=== PATIENT | female | born 1990 | race Caucasian/White ===

== ENCOUNTER 2016-10-06 01:15 | Emergency (ER) | payer SELFPAY ==
[~2016-10-06] VITALS: Ht 170.2 cm; Wt 120.2 kg
[~2016-10-06 01:15] MED LIST: CIPR-260 PO
[2016-10-06 01:20] VITALS: BP 156/91; PULSE 83; RESP 22; TEMP 98.3; O2SAT 92
--- NOTE | 2016-10-06 01:30 | NUR ---
Placed in room 03 . Placed on secured entrance monitor, blood pressure machine and pulse oximeter. To gown for exam. Side rails up. Report given to NARINDER Jones.
--- NOTE | 2016-10-06 01:40 | NUR ---
ER MD Booker at bedside for evaluation
--- NOTE | 2016-10-06 01:41 | NUR ---
Patient to ER C/O SOB. States that she has been having cold like symptoms with cough. Denies fever. AAOx4, unlabored breathing, wheezes throughout, diminished lower lobes, no acute distress.
--- NOTE | 2016-10-06 01:42 | NUR ---
RT at bedside for breathing treatment. Patient identified
[2016-10-06] MEDS ORDERED: PREDNISONE 20 MG TABLET PO ONE (02:00)
[2016-10-06] MEDS ORDERED: LevALBUTEROL HCL 1.25 MG/0.5 ML *CONC.* VIAL.NEB (XOPENEX CONC.) INH ONE ×3 (02:00→03:45)
[2016-10-06] MEDS ORDERED: IPRATROPIUM BROM 0.5 MG/2.5 ML VIAL.NEB (ATROVENT) IH ONE (02:00)
--- NOTE | 2016-10-06 02:48 | NUR ---
RT at bedside for 2nd breathing treatment
--- NOTE | 2016-10-06 03:45 | NUR ---
Patient states that she feels much better, breathing improved, denies SOB.
[2016-10-06 04:09] VITALS: BP 135/78; PULSE 90; RESP 20; TEMP 98.1; O2SAT 95
--- NOTE | 2016-10-06 04:09 | NUR ---
Patient given written and verbal discharge instructions and verbalizes understanding. ER MD Booker discussed with patient the results and treatment provided. Patient in stable condition. ID arm band removed. Rx of prednisone given. Patient educated on pain management and to follow up with PMD. Pain Scale 0/10. Opportunity for questions provided and answered.
== END 2016-10-06 04:09 | disposition home or self-care (01) ==
LOC: SED 01:15
DX: J45.901 Unspecified asthma with (acute) exacerbation (principal)
CPT/HCPCS: 94150; 94640; 99285; J7512